=== PATIENT | male | born 1935 | race Caucasian/White ===

== ENCOUNTER 2017-12-13 09:12 | Outpatient (CLI) | payer MEDICARE, BC ==
--- NOTE | 2017-12-13 11:29 | RAD ---
PA AND LATERAL VIEWS OF CHEST: Date: 12/13/17 HISTORY: Dyspnea. FINDINGS/IMPRESSION: Comparison made with exam of 12/26/16. There is continued elevation of the right hemidiaphragm. Left-sided AICD remains in place. The heart size is prominent, but stable. Chronic changes in the lung parenchyma are again noted. There is mild increased density in the right lower lung which may either be due to worsening of the chronic changes or acute process. Evidence of old granulomatous disease again seen. POS: [facility]
== END 2017-12-13 09:13 | disposition home or self-care (01) ==
LOC: RAD 09:12
PROVIDERS: ATTEND Internal Medicine Critical Care Medicine
DX: R06.00 Dyspnea, unspecified (principal); R91.8 Other nonspecific abnormal finding of lung field; J98.6 Disorders of diaphragm; Z95.810 Presence of automatic (implantable) cardiac defibrillator
CPT/HCPCS: 71046

== ENCOUNTER 2018-06-25 09:53 | Outpatient (CLI) | payer MEDICARE ==
--- NOTE | 2018-06-25 11:41 | RAD ---
TWO VIEW CHEST: History: Dyspnea. Comparison: 12-13-17 FINDINGS: There are some chronic appearing parenchymal changes which appear stable including stranding in the r ight midlung and bilateral apical pleural thickening. There is no evidence of acute infiltrate or vas cular congestion. Heart size is upper normal and stable. AICD leads are unchanged. There is a calcifi ed nodule in the left apical region which is unchanged in appearance. There is mild wedging of the T1 2 vertebra which is stable. IMPRESSION: Stable chest findings with no acute process apparent. POS: [facility]
== END 2018-06-25 09:54 | disposition home or self-care (01) ==
LOC: RAD 09:53
PROVIDERS: ATTEND Internal Medicine Critical Care Medicine
DX: R06.00 Dyspnea, unspecified (principal)
CPT/HCPCS: 71046

== ENCOUNTER 2018-08-12 16:02 | Inpatient (IN) | payer MEDICARE ==
[2018-08-12 16:40] LABS: #Basophils 0.2 thou/uL (0.0-0.2); #Eosinphils 0.6 thou/uL (0.0-0.7); #Monocytes 1.3 thou/uL (0.11-0.59); #Neutrophils 6.4 thou/uL (1.40-6.50); %Basophils 1.5 % (0.0-1.0); %Eosinophils 5.4 % (0.0-10.0); %Lymphocytes 19.1 % (21.0-51.0); %Monocytes 12.5 % (0.0-10.0); %Neutrophils 61.5 % (42.0-75.0); Hemoglobin 10.8 g/dL (14.0-18.0); Mean Corpuscular HGB CONC 32.3 g/dL (32.0-36.0); Mean Corpuscular Hemoglobin 28.9 pg (27.0-31.0); Mean Corpuscular Volume 89.3 fL (78.0-98.0); Mean Platelet Volume 10.9 fL (7.4-10.4); Platelet Count 179 thou/uL (130-400); RBC Distribution Width 13.9 % (11.5-14.5); Red Blood Cell (RBC) Count 3.73 mill/uL (4.70-6.10); White Blood Cell (WBC) Count 10.3 thou/uL (4.8-10.8)
[2018-08-12 16:54] LABS: ALT (SGPT) 22 U/L (8-55); AST (SGOT) 24 U/L (5-34); Albumin 3.6 g/dL (3.4-4.8); Alkaline Phosphatase 83 U/L (40-150); Anion Gap 13 mmol/L (10-20); BUN (Urea Nitrogen) 28 mg/dL (8.4-25.7); Bilirubin, Total 0.7 mg/dL (0.2-1.2); Calc. Creatinine Clearance 0 mL/min (70-130); Calcium 10.2 mg/dL (7.8-10.44); Carbon Dioxide 34 mmol/L (23-31); Chloride 100 mmol/L (98-107); Estimated GFR-MDRD 48; Globulin 3.2 g/dL (2.4-3.5); Glucose 95 mg/dL (83-110); Potassium 3.7 mmol/L (3.5-5.1); Protein, Total 6.8 g/dL (5.8-8.1); Sodium 143 mmol/L (136-145)
[2018-08-12] MEDS ORDERED: Clindamycin/D5W 600 mg/50 ml Premix Bag ONE (17:52)
[2018-08-12] MEDS ORDERED: Piperacillin/Tazobactam 3.375 GM VIAL ONE (17:52)
--- NOTE | 2018-08-12 17:55 | RAD ---
LATERAL IMAGING RIGHT TIBIA AND FIBULA 08/12/18 COMPARISON: None. HISTORY: Injury, trauma, pain. FINDINGS: There is a right knee arthroplasty. There is no displaced fracture or evidence of dislocation seen. T here is soft tissue swelling in the region of the knee medially and laterally. There is vascular calc ification posterior to the distal right femur. IMPRESSION: No displaced fracture noted. POS: [facility]
--- NOTE | 2018-08-12 19:44 | ULT ---
RIGHT LOWER EXTREMITY VENOUS DOPPLER ULTRASOUND: 08/12/2018 HISTORY: Pain, swelling, and redness. Fall. COMPARISON: None. TECHNIQUE: Multiplanar sharma-scale sonographic imaging of the venous structures of the right lower extremity were obtained with color-flow and spectral analysis. FINDINGS: Just below the level of the knee, in the anterior soft tissues, there is an anterolateral complex flu id collection, deep to the subcutaneous fat, measuring at least 15.5 cm in craniocaudal dimension. T his suggests a large soft tissue anterior hematoma. Follow-up imaging to document resolution advised as clinically warranted. The right common femoral vein, greater saphenous vein, profunda femoral ve in, femoral vein, popliteal vein, and posterior tibial vein are patent. There is normal blood flow, augmentation, and compression within the deep venous system on the right, with no evidence for DVT. IMPRESSION: 1. No evidence for deep venous thrombosis. 2. Complex anterior soft tissue fluid collection inferior to the right knee, which suggests a large hematoma, given history of fall, trauma, and pain. Abscess cannot be excluded. Follow-up imaging ad vised as clinically warranted. POS: [facility]
[2018-08-12 22:01] VITALS: BMI 27.3
[2018-08-12] MEDS ORDERED: HYDROcodone/Acetaminophen 5/325 mg Tablet PO PRN ×2 (22:54)
[2018-08-13] MEDS ORDERED: VANCOMYCIN IVPB PRN (02:27)
[2018-08-13] MEDS: Piperacillin/Tazobactam 3.375 GM in Sodium Chloride 0.9% 100 ML IVPB SCH ×4 (02:47→20:38)
[2018-08-13] MEDS ORDERED: Mometasone/Formoterol 120 PUFF INHALER INH SCH (06:30)
[2018-08-13] MEDS ORDERED: Budesonide 0.5 MG/2 ML NEB NEB SCH (07:00)
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
[2018-08-13] MEDS: Vancomycin HCl 1.5 GM in Sodium Chloride 0.9% 250 ML 300 ML IVPB SCH (10:10)
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
[2018-08-13] MEDS ORDERED: Montelukast Sodium 10 mg Tablet PO SCH (12:00)
[2018-08-13] MEDS ORDERED: Furosemide 40 MG TAB PO SCH (12:00)
[2018-08-13] MEDS ORDERED: Prenatal Vitamin 1 TAB PO SCH (12:00)
[2018-08-13] MEDS ORDERED: Spironolactone 25 MG TAB PO SCH (12:00)
[2018-08-13] MEDS ORDERED: Potassium Chloride 10 MEQ TAB PO SCH (12:00)
[2018-08-13] MEDS ORDERED: Atorvastatin Calcium 40 MG TAB PO SCH (12:00)
[2018-08-13] MEDS: Mometasone/Formoterol 120 PUFF INHALER INH SCH (18:20)
[2018-08-13] MEDS: Montelukast Sodium 10 mg Tablet PO SCH (20:34)
[2018-08-14] MEDS: Piperacillin/Tazobactam 3.375 GM in Sodium Chloride 0.9% 100 ML IVPB SCH ×4 (02:07→20:38)
[2018-08-14] MEDS: Mometasone/Formoterol 120 PUFF INHALER INH SCH ×2 (06:57→19:29)
[2018-08-14] MEDS: Budesonide 0.5 MG/2 ML NEB NEB SCH (06:58)
[2018-08-14] MEDS ORDERED: Lidocaine 1% (PF) 30 ML VIAL ONE (07:54)
[2018-08-14] MEDS ORDERED: Lidocaine 1% (PF) 30 ML VIAL SC SCH (08:00)
[2018-08-14] MEDS ORDERED: Lidocaine 1% w/Epinephrine 1:100K 20 ML VIAL ONE (08:06)
[2018-08-14] MEDS: Atorvastatin Calcium 40 MG TAB PO SCH (09:10)
[2018-08-14] MEDS: Furosemide 40 MG TAB PO SCH (09:11)
[2018-08-14] MEDS: Spironolactone 25 MG TAB PO SCH (09:11)
[2018-08-14] MEDS: Potassium Chloride 10 MEQ TAB PO SCH (09:11)
[2018-08-14] MEDS: Prenatal Vitamin 1 TAB PO SCH (09:12)
[2018-08-14] MEDS: Vancomycin HCl 1.5 GM in Sodium Chloride 0.9% 250 ML 300 ML IVPB SCH (09:13)
--- NOTE | 2018-08-14 12:02 | PRG ---
DATE OF SERVICE: 08/14/2018 SUBJECTIVE: Jewels is an 83-year-old white male, who is admitted 2 days ago by the medicine service for evaluation of swelling on the right leg. Apparently, he had a fall, but there is some concern of cellulitis and significant redness. He was seen by Dr. Leon in the clinic. Couple of days ago sent to the emergency room and ultimately admitted by the medicine team. Today, he is feeling a little better. He has been on vancomycin 1.5 every 12 hours as well as Zosyn. We have been asked to aspirate the hematoma for evaluation of possible infectious nature. PHYSICAL EXAMINATION: VITAL SIGNS: Temperature is 98, pulse 70, respiratory rate is 20, O2 saturation is 90% on 4 L nasal cannula, blood pressure is 109/68. GENERAL: He is alert and oriented to person, place, time, and situation, grossly nonfocal. He appears to be in no distress currently. Active and appropriate with the examiner. EXTREMITIES: Visual inspection of the right lower extremity demonstrates that he indeed have significant swelling on the anterior compartment just lateral to the tibial spine extending over to the fibular head and down approximately two handbreadths and this lump appears to be about 6 to 7 cm wide in width and two handbreadths in its longitudinal axis. It feels fluctuant with pressing. He has nice skin folds distal to this, but he does have some erythema on the distal aspect, which has been circumscribed and this actually appears to be receding based on last examination. Erythema is nontender, it blanches with pressure, tends to encompass about two thirds of the mid and proximal leg anteriorly and a little bit on the medial aspect of the tibial spine, but does not wrap around to the posterior aspect of the leg. He has good dorsiflexion with 5/5 strength in the extensor hallucis longus. Also good plantar flexion is noted. There is no crepitus at the ankle or the knee, neither joint appears not to be involved. This appears to be an isolated mid paredes hematoma extending from fibular head down to about mid leg and compressible. There are no breaks in the skin. There does not appear to be eruption or dehiscence pending. IMPRESSION: Right knee tibial mid paredes fluctuant hematoma. PLAN: 1. I think a formal needle aspiration and decompression is possible at the bedside and we will go ahead and proceed with that today and see what the gross specimen looks like and/or try to completely drain or decompress and take some tension off this hematoma. 2. Please see procedure note for needle decompression. Job ID: [id number]
--- NOTE | 2018-08-14 13:12 | PDOC.PN ---
- Subjective Encounter Start Date: 08/14/18 Encounter Start Time: 10:15 follow up for RLE hematoma, pain, recent fall. Seen by Iero earlier, thinks its all hematoma. PA to aspirate today, dark blood obtained, no evidence of infection. No F/C, no N/V/D/C, no cP or SOB. All systems reviewed and neg x as above - Objective MAR Reviewed: Yes Vital Signs & Weight: Vital Signs (12 hours) Temp Pulse Resp BP BP Pulse Ox 08/14/18 11:37 98.0 F 87 18 93/59 L 92 L 08/14/18 10:37 81 14 08/14/18 08:15 92 L 08/14/18 08:00 97.5 F L 84 20 106/65 92 L 08/14/18 06:59 80 14 08/14/18 04:00 98.0 F 70 20 109/68 90 L Weight Weight 218 lb 8 oz I&O: 08/13/18 08/14/18 08/15/18 06:59 06:59 06:59 Intake Total 480 Balance 480 Result Diagrams: 08/12/18 16:27 08/12/18 16:27 Phys Exam - Physical Examination Constitutional: NAD HEENT: PERRLA, moist MMs, sclera anicteric, oral pharynx no lesions Neck: no nodes, no JVD, supple, full ROM Respiratory: no wheezing, no rales, no rhonchi, clear to auscultation bilateral Cardiovascular: RRR, no significant murmur, no rub Gastrointestinal: soft, non-tender, no distention, positive bowel sounds Musculoskeletal: edema present Neurological: non-focal, normal sensation, moves all 4 limbs Lymphatic: no nodes Psychiatric: normal affect, A&O x 3 Skin: no rash, normal turgor, cap refill <2 seconds Dx/Plan (1) Fall on same level Code(s): W18.30XA - FALL ON SAME LEVEL, UNSPECIFIED, INITIAL ENCOUNTER Status : Acute Qualifiers: Encounter type: subsequent encounter Qualified Code(s): W18.30XD - Fall on same level, unspecified, subsequent encounter (2) CAD (coronary artery disease) Code(s): I25.10 - ATHSCL HEART DISEASE OF [place] CORONARY ARTERY W/O ANG PCTRS Status: Acute Qualifiers: Coronary Disease-Associated Artery/Lesion type: [place] artery [place] vs. transplanted heart: [place] heart Associated angina: without angina Qualified Code(s): I25.10 - Atherosclerotic heart disease of [place] coronary artery without angina pectoris (3) COPD (chronic obstructive pulmonary disease) Status: Chronic Qualifiers: COPD type: unspecified COPD Qualified Code(s): J44.9 - Chronic obstructive pulmonary disease, unspecified (4) Hematoma of right lower extremity Code(s): S80.11XA - CONTUSION OF RIGHT LOWER LEG, INITIAL ENCOUNTER Status: Acute Qualifiers: Encounter type: subsequent encounter Qualified Code(s): S80.11XD - Contusion of right lower leg, subsequent encounter (5) HTN (hypertension) Code(s): I10 - ESSENTIAL (PRIMARY) HYPERTENSION Status: Chronic Qualifiers: Hypertension type: essential hypertension Qualified Code(s): I10 - Essential (primary) hypertension (6) HLD (hyperlipidemia) Code(s): E78.5 - HYPERLIPIDEMIA, UNSPECIFIED Status: Chronic Qualifiers: Hyperlipidemia type: unspecified Qualified Code(s): E78.5 - Hyperlipidemia , unspecified (7) Chronic systolic (congestive) heart failure Code(s): I50.22 - CHRONIC SYSTOLIC (CONGESTIVE) HEART FAILURE Status: Chronic (8) Gout Code(s): M10.9 - GOUT, UNSPECIFIED Status: Chronic Qualifiers: Gout site: unspecified site Gout etiology: unspecified cause Chronicity: chronic - Plan cont current plan of care, plan discussed w/ family, PT/OT, out of bed/ambulate * .
[2018-08-14] MEDS: Montelukast Sodium 10 mg Tablet PO SCH (20:38)
[2018-08-15] MEDS: Piperacillin/Tazobactam 3.375 GM in Sodium Chloride 0.9% 100 ML IVPB SCH ×2 (02:39→09:20)
[2018-08-15] MEDS: Budesonide 0.5 MG/2 ML NEB NEB SCH (07:36)
[2018-08-15] MEDS: Mometasone/Formoterol 120 PUFF INHALER INH SCH (07:37)
[2018-08-15 09:00] LABS: Vancomycin, Trough 19.2 ug/mL
--- NOTE | 2018-08-15 09:05 | OP ---
DATE OF PROCEDURE: 08/14/2018 ANESTHESIA: 1% Xylocaine. EQUIPMENT UTILIZED: 18-gauge needle with 20 and 60 mL of syringes. FINDINGS: Organized hematoma. No evidence of infection or purulence. PROCEDURE IN DETAIL: After informed consent was obtained at the bedside, the patient was positioned appropriately. The right leg and site were identified, and a brief time-out was held identified and confirmed. Surgical site was preoperatively marked and identified by the nursing staff. Once this was complete, the right lower extremity was then prepped and draped in sterile fashion around the hematoma site. It was cleared off with sterile towels. 1% Xylocaine anesthesia was administered at the apex and inferior side of the hematoma, which appeared not to have any cellulitic change around it. Once this was complete, 18-gauge needle was then introduced to the same side down into the cavity of the hematoma. Evacuation was attempted with multiple syringes for pressure differentials and amplification. I was able to gather a small amount of consolidated dark currant jelly colored and consistency hematoma through the needle. After making multiple attempts and multiple approaches through the same hole, I was not able to express or move any of the organized subcutaneous liquified blood. Therefore, the needle was withdrawn, little bit of bleeding occurred at the site, again which was dark currant jelly. There was no bright red blood. Sterile pressure dressing was applied over the needle site. It was wrapped with Kerlix and an CHRISTOPHER bandage. Procedure was terminated without any complications. The patient tolerated it well. Overall impression: No evidence of purulence, no evidence of infection and this appears to be an organized, stable, and improving right leg hematoma. We will continue to follow the patient clinically. No formal plans for incision or washout are made at this time. We will continue to observe the patient clinically and conservatively. Job ID: [id number]
[2018-08-15] MEDS: Furosemide 40 MG TAB PO SCH (09:22)
[2018-08-15] MEDS: Potassium Chloride 10 MEQ TAB PO SCH (09:22)
[2018-08-15] MEDS: Spironolactone 25 MG TAB PO SCH (09:22)
[2018-08-15] MEDS: Atorvastatin Calcium 40 MG TAB PO SCH (09:22)
--- NOTE | 2018-08-15 10:28 | DIS ---
DATE OF ADMISSION: 08/12/2018 DATE OF DISCHARGE: 08/15/2018 PRIMARY CARE PHYSICIAN: None. DISCHARGE DIAGNOSES: 1. Fall from same level. 2. Traumatic hematoma of the right lower extremity. 3. Lower extremity pain. 4. Chronic lower extremity edema. 5. Infection ruled out. CONSULTATION: Orthopedics, Dr. Salas. PROCEDURES: None. HISTORY AND PHYSICAL: Mr. Donis is an 83-year-old gentleman with a fall 10 days prior to admission with increasing pain and swelling to his right lower extremity. He was sent by Dr. Leon to the Emergency Department with possible cellulitis. We were called for admit. HOSPITAL COURSE: The patient was seen and examined by me on admission. He placed in an inpatient status, started on antibiotics. Workup of the leg, it looked to be more hematoma. Orthopedics was consulted. On 08/14/2018, the hematoma was aspirated showing old blood, no evidence of infection. He was watched overnight and was stable for discharge with outpatient followup. DISCHARGE PHYSICAL EXAMINATION: The patient was seen and examined on the day of discharge. Discharge plan and disposition were discussed with the patient face to face at the bedside. DISCHARGE MEDICATIONS: Resume home medications. Please see the medicine discharge reconciliation sheet. DISCHARGE ACTIVITY: As tolerated. Keep the leg elevated and compression wrap on when non-mobile. DISCHARGE CONDITION: Stable. DISPOSITION: He will be discharged to home via private vehicle. DISCHARGE DIET: Heart healthy recommended. DISCHARGE FOLLOWUP APPOINTMENTS: 1. Primary care physician within a week. 2. Dr. Salas in 2 to 3 weeks. Job ID: [id number]
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
[2018-08-15] MEDS: Vancomycin HCl 1.5 GM in Sodium Chloride 0.9% 250 ML 300 ML IVPB SCH (10:44)
[2018-08-15] MEDS: Prenatal Vitamin 1 TAB PO SCH (10:44)
[2018-08-15 13:26] VITALS: BP 100/60; TEMP 97.8
== END 2018-08-15 14:40 | disposition home or self-care (01) | DRG 605 ==
LOC: SCSER 16:02 → ERHOLD 19:22 → T4-A 21:33
PROVIDERS: ADMIT Hospitalist; ATTEND Hospitalist
PROC: 0JCN3ZZ Extirpation of Matter from Right Lower Leg Subcutaneous Tissue and Fascia, Percutaneous Approach (ICD-10-PCS; principal; 2018-08-14)
DX: S80.11XA Contusion of right lower leg, initial encounter (principal); I50.22 Chronic systolic (congestive) heart failure; I25.10 Atherosclerotic heart disease of native coronary artery without angina pectoris; J44.9 Chronic obstructive pulmonary disease, unspecified; E78.5 Hyperlipidemia, unspecified; I11.0 Hypertensive heart disease with heart failure; G62.9 Polyneuropathy, unspecified; Z95.5 Presence of coronary angioplasty implant and graft; Z96.653 Presence of artificial knee joint, bilateral; Z79.899 Other long term (current) drug therapy; Z79.82 Long term (current) use of aspirin; Z79.02 Long term (current) use of antithrombotics/antiplatelets; W18.30XA Fall on same level, unspecified, initial encounter; Z99.81 Dependence on supplemental oxygen; Z90.81 Acquired absence of spleen; Z95.810 Presence of automatic (implantable) cardiac defibrillator; Z87.891 Personal history of nicotine dependence; M1A.9XX0 Chronic gout, unspecified, without tophus (tophi)
CPT/HCPCS: 36415; 80053; 80202; 83605; 85025; 87040; 94640; 96365; 96367; 96375; J2001; J2543; J3370; J3490; J7050; J7620; J7626

== ENCOUNTER 2020-07-08 10:22 | Outpatient (CLI) | payer MEDICARE ==
--- NOTE | 2020-07-08 12:03 | RAD ---
EXAM: Chest 2 views: HISTORY: Dyspnea COMPARISON: 06/25/2018 FINDINGS: There is a normal-sized cardiomediastinal silhouette. The pacemaker is unchanged in position. Diffus e increased interstitial markings are stable. Biapical pleural thickening is seen. Atherosclerotic calcifications are seen in the aorta. There may be a small left pleural effusion. No acute osseous abnormality. IMPRESSION: Chronic interstitial lung disease with possible small left pleural effusion
== END 2020-07-08 10:23 | disposition home or self-care (01) ==
LOC: BICRAD 10:22
PROVIDERS: ATTEND Internal Medicine Critical Care Medicine
DX: R06.00 Dyspnea, unspecified (principal); J84.9 Interstitial pulmonary disease, unspecified
CPT/HCPCS: 71046

== ENCOUNTER 2021-02-07 12:15 | Outpatient (CLI) | payer MEDICARE | END 2021-02-07 12:16 | disposition home or self-care (01) | LOC: BICRAD 12:15 | PROVIDERS: ATTEND Internal Medicine Critical Care Medicine | DX: R06.00 Dyspnea, unspecified (principal); R91.8 Other nonspecific abnormal finding of lung field | CPT/HCPCS: 71046 ==

== ENCOUNTER 2021-09-01 11:02 | Outpatient (CLI) | payer MEDICARE | END 2021-09-01 11:03 | disposition home or self-care (01) | LOC: RAD 11:02 | PROVIDERS: ATTEND Internal Medicine Critical Care Medicine | DX: R06.00 Dyspnea, unspecified (principal) | CPT/HCPCS: 71046 ==

== ENCOUNTER 2021-09-13 19:05 | Inpatient (IN) | payer MEDICARE ==
[2021-09-13 20:47] LABS: #Lymphocytes 1.4 thou/uL (1.20-3.40); #Monocytes 1.3 thou/uL (0.11-0.59); #Neutrophils 11.1 thou/uL (1.40-6.50); %Basophils 0.3 % (0.0-1.0); %Eosinophils 0.1 % (0.0-10.0); %Lymphocytes 10.3 % (21.0-51.0); %Monocytes 9.1 % (0.0-10.0); %Neutrophils 80.2 % (42.0-75.0); Mean Corpuscular HGB CONC 32.6 g/dL (32.0-36.0); Mean Corpuscular Hemoglobin 30.5 pg (27.0-31.0); Mean Corpuscular Volume 93.5 fL (78.0-98.0); Mean Platelet Volume 10.6 fL (7.4-10.4); Platelet Count 143 thou/uL (130-400); RBC Distribution Width 14.6 % (11.5-14.5); Red Blood Cell (RBC) Count 3.27 mill/uL (4.70-6.10); White Blood Cell (WBC) Count 13.8 thou/uL (4.8-10.8)
[2021-09-13 21:14] LABS: ALT (SGPT) 22 U/L (8-55); AST (SGOT) 37 U/L (5-34); Albumin 3.1 g/dL (3.4-4.8); Alkaline Phosphatase 79 U/L (40-110); Anion Gap 14 mmol/L (10-20); BUN (Urea Nitrogen) 69 mg/dL (8.4-25.7); Bilirubin, Total 0.4 mg/dL (0.2-1.2); Calc. Creatinine Clearance 0 mL/min (70-130); Calcium 9.7 mg/dL (7.8-10.44); Carbon Dioxide 28 mmol/L (23-31); Chloride 96 mmol/L (98-107); Globulin 3.1 g/dL (2.4-3.5); Glucose 112 mg/dL (83-110); Potassium 4.6 mmol/L (3.5-5.1); Protein, Total 6.2 g/dL (5.8-8.1); Sodium 133 mmol/L (136-145)
[2021-09-13] MEDS ORDERED: Azithromycin 500 MG VIAL ONE (22:18)
[2021-09-13] MEDS ORDERED: cefTRIAXone\\ROCEPHIN 2 GM VIAL ONE (22:18)
[2021-09-13 23:15] LABS: Bacteria/HPF None Seen HPF (None Seen); Bilirubin Negative (Negative); Blood, Urine Trace (Negative); Clarity Clear (Clear); Glucose, Urine (Dipstick) Normal (Negative); Ketone, Urine Negative (Negative); Leukocyte Negative Leu/uL (Negative); Mucous/LPF Rare LPF (<2+); Nitrite Negative (Negative); Protein, Urine (Dipstick) 30 mg/dL (Neg-Trace); RBC/HPF None Seen HPF (0-3); Specific Gravity, Urine 1.012 (1.002-1.036); Squamous Epithelial None Seen HPF (0-3); Urobilinogen Normal mg/dL (Less than 2); WBC/HPF None Seen HPF (0-3)
[2021-09-13] MEDS ORDERED: hydrALAZINE 20 MG/ML VIAL SLOW IVP PRN (23:27)
[2021-09-13] MEDS ORDERED: GUAIFENESIN SF SOLN 200 MG/10 ML UDCUP PO PRN (23:27)
[2021-09-13] MEDS ORDERED: Morphine 4 MG/ML VIAL SLOW IVP PRN (23:35)
[2021-09-14 00:21] LABS: SARS-CoV-2 NAA Rapid Test DETECTED (NotDetected)
[2021-09-14 04:23] LABS: Band 2 % (5-11); Hemoglobin 10.2 g/dL (14.0-18.0); Lymphocytes 8 % (21-51); MDiff Complete? YES; Mean Corpuscular HGB CONC 32.1 g/dL (32.0-36.0); Mean Corpuscular Hemoglobin 30.4 pg (27.0-31.0); Mean Corpuscular Volume 94.9 fL (78.0-98.0); Mean Platelet Volume 10.5 fL (7.4-10.4); Monocytes 5 % (0-10); Neutrophil 84 % (42-75); Platelet Count 146 thou/uL (130-400); Platelet Morphology Comment Appears Adequate; RBC Distribution Width 14.5 % (11.5-14.5); RBC Morphology Normal; Red Blood Cell (RBC) Count 3.37 mill/uL (4.70-6.10); White Blood Cell (WBC) Count 12.3 thou/uL (4.8-10.8)
[2021-09-14 04:42] LABS: ALT (SGPT) 22 U/L (8-55); AST (SGOT) 40 U/L (5-34); Albumin 2.9 g/dL (3.4-4.8); Alkaline Phosphatase 75 U/L (40-110); Anion Gap 12 mmol/L (10-20); BUN (Urea Nitrogen) 61 mg/dL (8.4-25.7); Bilirubin, Total 0.2 mg/dL (0.2-1.2); Calc. Creatinine Clearance 37 mL/min (70-130); Calcium 9.3 mg/dL (7.8-10.44); Carbon Dioxide 28 mmol/L (23-31); Chloride 101 mmol/L (98-107); Globulin 2.9 g/dL (2.4-3.5); Glucose 103 mg/dL (83-110); Potassium 4.3 mmol/L (3.5-5.1); Protein, Total 5.8 g/dL (5.8-8.1); Sodium 137 mmol/L (136-145)
[2021-09-14] MEDS: Dexamethasone 1 MG TAB PO SCH ×2 (08:14→17:04)
[2021-09-14] MEDS: Aspirin 325 mg Enteric Coated Tablet PO SCH (08:15)
[2021-09-14] MEDS: Cyanocobalamin (Vitamin B-12) 1,000 MCG TAB PO SCH (08:15)
[2021-09-14] MEDS: Enoxaparin Sodium 30 MG/0.3 ML SYRINGE SC SCH (08:16)
[2021-09-14] MEDS: Zinc Sulfate 220 MG CAP PO SCH (08:16)
[2021-09-14] MEDS ORDERED: Cefepime 1 GM in Sodium Chloride 0.9% 100 ML IVPB SCH (09:00)
[2021-09-14] MEDS: Albuterol 200 PUFF (6.7GM INHALER) INH SCH ×4 (11:22→21:40)
[2021-09-14] MEDS ORDERED: Lactated Ringer's 500 ML IV SCH (18:15)
[2021-09-14] MEDS: Cefepime 1 GM in Sodium Chloride 0.9% 100 ML IVPB SCH (20:29)
[2021-09-14] MEDS: Azithromycin 500 MG in Sodium Chloride 0.9% 250 ML 250 ML IVPB SCH (21:39)
[2021-09-15] MEDS: Albuterol 200 PUFF (6.7GM INHALER) INH SCH ×6 (03:33→21:28)
[2021-09-15 08:38] LABS: Hemoglobin 10.5 g/dL (14.0-18.0); Mean Corpuscular HGB CONC 31.6 g/dL (32.0-36.0); Mean Corpuscular Hemoglobin 30.8 pg (27.0-31.0); Mean Corpuscular Volume 97.2 fL (78.0-98.0); Mean Platelet Volume 10.3 fL (7.4-10.4); Platelet Count 141 thou/uL (130-400); RBC Distribution Width 14.9 % (11.5-14.5); Red Blood Cell (RBC) Count 3.42 mill/uL (4.70-6.10)
[2021-09-15 08:57] LABS: Albumin 2.9 g/dL (3.4-4.8); Anion Gap 10 mmol/L (10-20); BUN (Urea Nitrogen) 42 mg/dL (8.4-25.7); Calc. Creatinine Clearance 45 mL/min (70-130); Calcium 9.6 mg/dL (7.8-10.44); Carbon Dioxide 30 mmol/L (23-31); Chloride 101 mmol/L (98-107); Glucose 93 mg/dL (83-110); Potassium 4.9 mmol/L (3.5-5.1); Sodium 136 mmol/L (136-145)
[2021-09-15] MEDS: Enoxaparin Sodium 30 MG/0.3 ML SYRINGE SC SCH (09:43)
[2021-09-15] MEDS: Aspirin 325 mg Enteric Coated Tablet PO SCH (09:43)
[2021-09-15] MEDS: Zinc Sulfate 220 MG CAP PO SCH (09:43)
[2021-09-15] MEDS: Cyanocobalamin (Vitamin B-12) 1,000 MCG TAB PO SCH (09:44)
[2021-09-15] MEDS: Dexamethasone 1 MG TAB PO SCH ×2 (09:44→18:28)
[2021-09-15] MEDS: Cefepime 1 GM in Sodium Chloride 0.9% 100 ML IVPB SCH ×2 (09:45→20:47)
[2021-09-15] MEDS: Metoprolol Tartrate 25 MG TAB PO SCH (20:48)
[2021-09-15] MEDS: Azithromycin 500 MG in Sodium Chloride 0.9% 250 ML 250 ML IVPB SCH (21:28)
[2021-09-16] MEDS: Albuterol 200 PUFF (6.7GM INHALER) INH SCH ×6 (04:33→21:31)
[2021-09-16 07:16] LABS: Albumin 2.7 g/dL (3.4-4.8); BUN (Urea Nitrogen) 47 mg/dL (8.4-25.7); BUN/Creatinine Ratio 34.06; Calc. Creatinine Clearance 41 mL/min (70-130); Calcium 9.2 mg/dL (7.8-10.44); Carbon Dioxide 28 mmol/L (23-31); Chloride 99 mmol/L (98-107); Glucose 117 mg/dL (83-110); Phosphorus 3.1 mg/dL (2.3-4.7); Sodium 134 mmol/L (136-145)
[2021-09-16 07:30] LABS: Anion Gap 12 mmol/L (10-20)
[2021-09-16] MEDS: Aspirin 325 mg Enteric Coated Tablet PO SCH (08:56)
[2021-09-16] MEDS: Zinc Sulfate 220 MG CAP PO SCH (08:56)
[2021-09-16] MEDS: Cefepime 1 GM in Sodium Chloride 0.9% 100 ML IVPB SCH ×2 (08:57→20:37)
[2021-09-16] MEDS: Dexamethasone 1 MG TAB PO SCH ×2 (08:57→18:27)
[2021-09-16] MEDS: Clopidogrel Bisulfate 75 MG TAB PO SCH (08:57)
[2021-09-16] MEDS: Allopurinol 300 MG TAB PO SCH (08:57)
[2021-09-16] MEDS: Atorvastatin Calcium 40 MG TAB PO SCH (08:57)
[2021-09-16] MEDS: Metoprolol Tartrate 25 MG TAB PO SCH ×2 (08:58→20:38)
[2021-09-16] MEDS: Enoxaparin Sodium 30 MG/0.3 ML SYRINGE SC SCH (08:58)
[2021-09-16] MEDS: Cyanocobalamin (Vitamin B-12) 1,000 MCG TAB PO SCH (08:59)
[2021-09-16] MEDS ORDERED: Spironolactone 25 MG TAB PO SCH (09:00)
[2021-09-16] MEDS: Mometasone 200 MCG/Formoterol 5 MCG 120 PUFF INHALER INH SCH (18:28)
[2021-09-16] MEDS: Furosemide 20 MG TAB PO SCH (20:38)
[2021-09-16] MEDS: Azithromycin 500 MG in Sodium Chloride 0.9% 250 ML 250 ML IVPB SCH (21:30)
[2021-09-17] MEDS: Albuterol 200 PUFF (6.7GM INHALER) INH SCH ×6 (02:53→22:08)
[2021-09-17] MEDS: Mometasone 200 MCG/Formoterol 5 MCG 120 PUFF INHALER INH SCH ×2 (06:12→18:01)
[2021-09-17] MEDS: Dexamethasone 1 MG TAB PO SCH (09:23)
[2021-09-17] MEDS: Aspirin 325 mg Enteric Coated Tablet PO SCH (09:24)
[2021-09-17] MEDS: Allopurinol 300 MG TAB PO SCH (09:24)
[2021-09-17] MEDS: Cefepime 1 GM in Sodium Chloride 0.9% 100 ML IVPB SCH ×2 (09:25→20:34)
[2021-09-17] MEDS: Atorvastatin Calcium 40 MG TAB PO SCH (09:25)
[2021-09-17] MEDS: Clopidogrel Bisulfate 75 MG TAB PO SCH (09:27)
[2021-09-17] MEDS: Cyanocobalamin (Vitamin B-12) 1,000 MCG TAB PO SCH (09:27)
[2021-09-17] MEDS: Furosemide 20 MG TAB PO SCH ×2 (09:29→20:35)
[2021-09-17] MEDS: Enoxaparin Sodium 30 MG/0.3 ML SYRINGE SC SCH (09:29)
[2021-09-17] MEDS: Metoprolol Tartrate 25 MG TAB PO SCH ×2 (09:30→20:35)
[2021-09-17] MEDS: Montelukast Sodium 10 mg Tablet PO SCH (09:30)
[2021-09-17] MEDS: Zinc Sulfate 220 MG CAP PO SCH (09:31)
[2021-09-17 12:38] LABS: Anion Gap 9 mmol/L (10-20); BUN (Urea Nitrogen) 54 mg/dL (8.4-25.7); CRP (Inflammatory) 5.02 mg/dL (= or < 0.5); Calc. Creatinine Clearance 45 mL/min (70-130); Calcium 9.4 mg/dL (7.8-10.44); Carbon Dioxide 31 mmol/L (23-31); Chloride 100 mmol/L (98-107); Glucose 122 mg/dL (83-110); Potassium 4.7 mmol/L (3.5-5.1); Sodium 135 mmol/L (136-145)
[2021-09-17] MEDS: Azithromycin 500 MG in Sodium Chloride 0.9% 250 ML 250 ML IVPB SCH (22:08)
[2021-09-18] MEDS: Albuterol 200 PUFF (6.7GM INHALER) INH SCH ×6 (02:26→22:45)
[2021-09-18] MEDS: Mometasone 200 MCG/Formoterol 5 MCG 120 PUFF INHALER INH SCH ×2 (06:10→17:50)
[2021-09-18] MEDS: Enoxaparin Sodium 30 MG/0.3 ML SYRINGE SC SCH (08:53)
[2021-09-18] MEDS: Cyanocobalamin (Vitamin B-12) 1,000 MCG TAB PO SCH (08:54)
[2021-09-18] MEDS: Atorvastatin Calcium 40 MG TAB PO SCH (08:55)
[2021-09-18] MEDS: Aspirin 325 mg Enteric Coated Tablet PO SCH (08:55)
[2021-09-18] MEDS: Montelukast Sodium 10 mg Tablet PO SCH (08:56)
[2021-09-18] MEDS: Metoprolol Tartrate 25 MG TAB PO SCH ×2 (08:56→22:03)
[2021-09-18] MEDS: Clopidogrel Bisulfate 75 MG TAB PO SCH (08:56)
[2021-09-18] MEDS: Zinc Sulfate 220 MG CAP PO SCH (08:56)
[2021-09-18] MEDS: Allopurinol 300 MG TAB PO SCH (08:56)
[2021-09-18] MEDS: predniSONE 20 MG TAB PO SCH (08:56)
[2021-09-18] MEDS: Furosemide 20 MG TAB PO SCH ×2 (08:56→22:02)
[2021-09-18] MEDS: Cefepime 1 GM in Sodium Chloride 0.9% 100 ML IVPB SCH ×2 (08:57→22:02)
[2021-09-18] MEDS: Azithromycin 500 MG in Sodium Chloride 0.9% 250 ML 250 ML IVPB SCH (22:45)
[2021-09-19] MEDS: Albuterol 200 PUFF (6.7GM INHALER) INH SCH ×6 (02:50→21:40)
[2021-09-19 06:06] LABS: #Lymphocytes 1.5 thou/uL (1.20-3.40); #Monocytes 1.4 thou/uL (0.11-0.59); #Neutrophils 7.1 thou/uL (1.40-6.50); %Basophils 0.1 % (0.0-1.0); %Eosinophils 0.5 % (0.0-10.0); %Lymphocytes 14.6 % (21.0-51.0); %Monocytes 13.6 % (0.0-10.0); %Neutrophils 71.2 % (42.0-75.0); Hemoglobin 10.1 g/dL (14.0-18.0); Mean Corpuscular HGB CONC 31.8 g/dL (32.0-36.0); Mean Corpuscular Hemoglobin 30.3 pg (27.0-31.0); Mean Corpuscular Volume 95.3 fL (78.0-98.0); Mean Platelet Volume 10.1 fL (7.4-10.4); Platelet Count 196 thou/uL (130-400); RBC Distribution Width 14.9 % (11.5-14.5); Red Blood Cell (RBC) Count 3.33 mill/uL (4.70-6.10)
[2021-09-19] MEDS: Mometasone 200 MCG/Formoterol 5 MCG 120 PUFF INHALER INH SCH ×2 (06:20→17:49)
[2021-09-19 06:21] LABS: Anion Gap 9 mmol/L (10-20); BUN (Urea Nitrogen) 49 mg/dL (8.4-25.7); CRP (Inflammatory) 2.09 mg/dL (= or < 0.5); Calc. Creatinine Clearance 51 mL/min (70-130); Calcium 9.2 mg/dL (7.8-10.44); Carbon Dioxide 32 mmol/L (23-31); Chloride 101 mmol/L (98-107); Glucose 111 mg/dL (83-110); Magnesium 1.7 mg/dL (1.6-2.6); Potassium 4.3 mmol/L (3.5-5.1); Sodium 138 mmol/L (136-145)
[2021-09-19 06:27] LABS: Phosphorus 1.9 mg/dL (2.3-4.7)
[2021-09-19] MEDS ORDERED: Electrolyte Replacement Protocol FS PRN (07:00)
[2021-09-19] MEDS ORDERED: PHOS-NAK 1 PKT PACK PO SCH (07:30)
[2021-09-19] MEDS ORDERED: Magnesium 2 GM/50 ML 2 GM in Premix Bag 1 BAG IVPB SCH (08:00)
[2021-09-19] MEDS: Zinc Sulfate 220 MG CAP PO SCH (08:36)
[2021-09-19] MEDS: Furosemide 20 MG TAB PO SCH ×3 (08:36→21:39)
[2021-09-19] MEDS: Aspirin 325 mg Enteric Coated Tablet PO SCH (08:36)
[2021-09-19] MEDS: Atorvastatin Calcium 40 MG TAB PO SCH (08:36)
[2021-09-19] MEDS: Metoprolol Tartrate 25 MG TAB PO SCH ×3 (08:37→21:39)
[2021-09-19] MEDS: Clopidogrel Bisulfate 75 MG TAB PO SCH (08:37)
[2021-09-19] MEDS: Cefepime 1 GM in Sodium Chloride 0.9% 100 ML IVPB SCH (08:42)
[2021-09-19] MEDS: Cyanocobalamin (Vitamin B-12) 1,000 MCG TAB PO SCH (08:42)
[2021-09-19] MEDS: Enoxaparin Sodium 30 MG/0.3 ML SYRINGE SC SCH (08:44)
[2021-09-19] MEDS: Montelukast Sodium 10 mg Tablet PO SCH (08:44)
[2021-09-19] MEDS: Allopurinol 300 MG TAB PO SCH (08:44)
[2021-09-19] MEDS: predniSONE 20 MG TAB PO SCH (08:44)
[2021-09-19] MEDS: Acetaminophen 325 MG TAB PO PRN (10:13)
[2021-09-19] MEDS: PHOS-NAK 1 PKT PACK PO SCH ×2 (11:18→15:09)
[2021-09-19] MEDS: Cefdinir 300 MG CAP PO SCH (21:39)
[2021-09-20] MEDS: Albuterol 200 PUFF (6.7GM INHALER) INH SCH ×7 (02:45→21:31)
[2021-09-20 05:25] LABS: Phosphorus 2.6 mg/dL (2.3-4.7)
[2021-09-20] MEDS: Mometasone 200 MCG/Formoterol 5 MCG 120 PUFF INHALER INH SCH ×2 (06:09→18:28)
[2021-09-20] MEDS: Aspirin 325 mg Enteric Coated Tablet PO SCH (08:58)
[2021-09-20] MEDS: Allopurinol 300 MG TAB PO SCH (08:59)
[2021-09-20] MEDS: Zinc Sulfate 220 MG CAP PO SCH (08:59)
[2021-09-20] MEDS: Clopidogrel Bisulfate 75 MG TAB PO SCH (08:59)
[2021-09-20] MEDS: predniSONE 20 MG TAB PO SCH (08:59)
[2021-09-20] MEDS: Montelukast Sodium 10 mg Tablet PO SCH (08:59)
[2021-09-20] MEDS: Atorvastatin Calcium 40 MG TAB PO SCH (08:59)
[2021-09-20] MEDS: Cyanocobalamin (Vitamin B-12) 1,000 MCG TAB PO SCH (09:00)
[2021-09-20] MEDS: Furosemide 20 MG TAB PO SCH ×2 (09:00→21:30)
[2021-09-20] MEDS: Cefdinir 300 MG CAP PO SCH ×2 (09:00→21:30)
[2021-09-20] MEDS: Enoxaparin Sodium 30 MG/0.3 ML SYRINGE SC SCH (09:01)
[2021-09-20] MEDS: Metoprolol Tartrate 25 MG TAB PO SCH ×2 (09:06→21:31)
[2021-09-20] MEDS ORDERED: Metoprolol Tartrate 5 MG/5 ML VIAL IVP SCH (10:00)
[2021-09-20] MEDS ORDERED: Digoxin 0.5 MG/2 ML AMP SLOW IVP SCH (11:00)
[2021-09-20] MEDS: HYDROcodone/Acetaminophen 5/325 mg Tablet PO PRN (11:28)
[2021-09-20] MEDS ORDERED: Metoprolol Tartrate 5 MG/5 ML VIAL IVP PRN (12:15)
[2021-09-21] MEDS: Albuterol 200 PUFF (6.7GM INHALER) INH SCH ×6 (02:11→21:19)
[2021-09-21] MEDS: Mometasone 200 MCG/Formoterol 5 MCG 120 PUFF INHALER INH SCH ×2 (05:47→20:34)
[2021-09-21] MEDS: Enoxaparin Sodium 30 MG/0.3 ML SYRINGE SC SCH (08:04)
[2021-09-21] MEDS: HYDROcodone/Acetaminophen 5/325 mg Tablet PO PRN (08:04)
[2021-09-21] MEDS: Aspirin 325 mg Enteric Coated Tablet PO SCH (11:24)
[2021-09-21] MEDS: Atorvastatin Calcium 40 MG TAB PO SCH (11:24)
[2021-09-21] MEDS: Clopidogrel Bisulfate 75 MG TAB PO SCH (11:24)
[2021-09-21] MEDS: Cefdinir 300 MG CAP PO SCH ×2 (11:24→21:18)
[2021-09-21] MEDS: Allopurinol 300 MG TAB PO SCH (11:24)
[2021-09-21] MEDS: predniSONE 20 MG TAB PO SCH (11:24)
[2021-09-21] MEDS: Cyanocobalamin (Vitamin B-12) 1,000 MCG TAB PO SCH (11:25)
[2021-09-21] MEDS: Furosemide 20 MG TAB PO SCH ×2 (11:25→21:18)
[2021-09-21] MEDS: Montelukast Sodium 10 mg Tablet PO SCH (11:26)
[2021-09-21] MEDS: Zinc Sulfate 220 MG CAP PO SCH (11:26)
[2021-09-21] MEDS: Metoprolol Tartrate 25 MG TAB PO SCH ×2 (11:26→21:18)
[2021-09-22] MEDS: HYDROcodone/Acetaminophen 5/325 mg Tablet PO PRN (05:10)
[2021-09-22] MEDS: Albuterol 200 PUFF (6.7GM INHALER) INH SCH ×6 (05:28→21:35)
[2021-09-22 07:48] LABS: Hemoglobin 13.8 g/dL (14.0-18.0); Mean Corpuscular HGB CONC 31.6 g/dL (32.0-36.0); Mean Corpuscular Hemoglobin 30.1 pg (27.0-31.0); Mean Corpuscular Volume 95.2 fL (78.0-98.0); Mean Platelet Volume 9.6 fL (7.4-10.4); Platelet Count 280 thou/uL (130-400); RBC Distribution Width 15.3 % (11.5-14.5); Red Blood Cell (RBC) Count 4.58 mill/uL (4.70-6.10); White Blood Cell (WBC) Count 16.5 thou/uL (4.8-10.8)
[2021-09-22 08:00] LABS: Globulin 3.5 g/dL (2.4-3.5)
[2021-09-22 08:01] LABS: ALT (SGPT) 53 U/L (8-55); AST (SGOT) 48 U/L (5-34); Albumin 3.1 g/dL (3.4-4.8); Alkaline Phosphatase 85 U/L (40-110); BUN (Urea Nitrogen) 50 mg/dL (8.4-25.7); Bilirubin, Total 0.6 mg/dL (0.2-1.2); Calc. Creatinine Clearance 54 mL/min (70-130); Glucose 109 mg/dL (83-110)
[2021-09-22 08:10] LABS: Anion Gap 16 mmol/L (10-20); Carbon Dioxide 36 mmol/L (23-31); Chloride 93 mmol/L (98-107); Potassium 4.3 mmol/L (3.5-5.1); Protein, Total 6.6 g/dL (5.8-8.1); Sodium 141 mmol/L (136-145)
[2021-09-22 08:18] LABS: Band 15 % (5-11); Lymphocytes 5 % (21-51); MDiff Complete? YES; Monocytes 5 % (0-10); Neutrophil 75 % (42-75); Platelet Morphology Comment Appears Adequate; Polychromasia SLIGHT = 2-3 cells (100X) (0-2/hpf); Schistocytes SLIGHT = 2-5 cells (100X) (0-1/hpf)
[2021-09-22] MEDS ORDERED: Furosemide 40 MG TAB PO SCH (09:00)
[2021-09-22] MEDS: Mometasone 200 MCG/Formoterol 5 MCG 120 PUFF INHALER INH SCH ×2 (10:18→19:41)
[2021-09-22] MEDS: Atorvastatin Calcium 40 MG TAB PO SCH (10:19)
[2021-09-22] MEDS: Allopurinol 300 MG TAB PO SCH (10:19)
[2021-09-22] MEDS: Cefdinir 300 MG CAP PO SCH ×2 (10:19→21:35)
[2021-09-22] MEDS: Clopidogrel Bisulfate 75 MG TAB PO SCH (10:19)
[2021-09-22] MEDS: Cyanocobalamin (Vitamin B-12) 1,000 MCG TAB PO SCH (10:19)
[2021-09-22] MEDS: Metoprolol Tartrate 25 MG TAB PO SCH ×2 (10:20→21:35)
[2021-09-22] MEDS: Montelukast Sodium 10 mg Tablet PO SCH (10:20)
[2021-09-22] MEDS: Enoxaparin Sodium 30 MG/0.3 ML SYRINGE SC SCH (10:20)
[2021-09-22] MEDS: Zinc Sulfate 220 MG CAP PO SCH (10:21)
[2021-09-22] MEDS: predniSONE 20 MG TAB PO SCH (11:12)
[2021-09-22] MEDS: Aspirin 325 mg Enteric Coated Tablet PO SCH (19:50)
[2021-09-23] MEDS: HYDROcodone/Acetaminophen 5/325 mg Tablet PO PRN (02:50)
[2021-09-23] MEDS: Albuterol 200 PUFF (6.7GM INHALER) INH SCH ×5 (02:50→19:55)
[2021-09-23] MEDS: Mometasone 200 MCG/Formoterol 5 MCG 120 PUFF INHALER INH SCH ×2 (06:29→19:57)
[2021-09-23] MEDS ORDERED: predniSONE 20 MG TAB PO SCH (08:00)
[2021-09-23] MEDS: Enoxaparin Sodium 40 MG/0.4 ML SYRINGE SC SCH (10:10)
[2021-09-23] MEDS: Atorvastatin Calcium 40 MG TAB PO SCH (10:11)
[2021-09-23] MEDS: Aspirin 81 mg Enteric Coated Tablet PO SCH (10:11)
[2021-09-23] MEDS: Metoprolol Tartrate 25 MG TAB PO SCH ×3 (10:11→21:33)
[2021-09-23] MEDS: Cefdinir 300 MG CAP PO SCH ×2 (10:11→21:32)
[2021-09-23] MEDS: Zinc Sulfate 220 MG CAP PO SCH (10:12)
[2021-09-23] MEDS: Allopurinol 300 MG TAB PO SCH (10:12)
[2021-09-23] MEDS: Cyanocobalamin (Vitamin B-12) 1,000 MCG TAB PO SCH (10:12)
[2021-09-23] MEDS: Montelukast Sodium 10 mg Tablet PO SCH (10:12)
[2021-09-23] MEDS: Clopidogrel Bisulfate 75 MG TAB PO SCH (10:12)
[2021-09-23] MEDS: predniSONE 5 MG TAB PO SCH (10:12)
[2021-09-23] MEDS: Dextrose 5% in Water 1,000 ML IV SCH (16:24)
[2021-09-24] MEDS: Albuterol 200 PUFF (6.7GM INHALER) INH SCH ×7 (00:07→22:00)
[2021-09-24] MEDS ORDERED: Furosemide 40 MG/4 ML VIAL SLOW IVP SCH (01:00)
[2021-09-24 06:43] LABS: %Eosinophils 0.2 % (0.0-10.0); %Monocytes 8.7 % (0.0-10.0); %Neutrophils 84.1 % (42.0-75.0); Mean Corpuscular HGB CONC 30.2 g/dL (32.0-36.0); Mean Corpuscular Hemoglobin 29.6 pg (27.0-31.0); Mean Corpuscular Volume 97.9 fL (78.0-98.0); Mean Platelet Volume 9.7 fL (7.4-10.4); Platelet Count 285 thou/uL (130-400); RBC Distribution Width 15.4 % (11.5-14.5); Red Blood Cell (RBC) Count 4.39 mill/uL (4.70-6.10); White Blood Cell (WBC) Count 10.6 thou/uL (4.8-10.8)
[2021-09-24 07:01] LABS: Anion Gap 14 mmol/L (10-20); BUN (Urea Nitrogen) 71 mg/dL (8.4-25.7); CRP (Inflammatory) 19.95 mg/dL (= or < 0.5); Calc. Creatinine Clearance 44 mL/min (70-130); Carbon Dioxide 37 mmol/L (23-31); Chloride 97 mmol/L (98-107); Glucose 118 mg/dL (83-110); Potassium 4.4 mmol/L (3.5-5.1); Sodium 144 mmol/L (136-145)
[2021-09-24] MEDS: Mometasone 200 MCG/Formoterol 5 MCG 120 PUFF INHALER INH SCH ×2 (07:14→17:38)
[2021-09-24] MEDS: Aspirin 81 mg Enteric Coated Tablet PO SCH (09:31)
[2021-09-24] MEDS: Metoprolol Tartrate 25 MG TAB PO SCH ×2 (09:31→20:57)
[2021-09-24] MEDS: Montelukast Sodium 10 mg Tablet PO SCH (09:31)
[2021-09-24] MEDS: Enoxaparin Sodium 40 MG/0.4 ML SYRINGE SC SCH (09:31)
[2021-09-24] MEDS: Atorvastatin Calcium 40 MG TAB PO SCH (09:32)
[2021-09-24] MEDS: Cyanocobalamin (Vitamin B-12) 1,000 MCG TAB PO SCH (09:32)
[2021-09-24] MEDS: predniSONE 5 MG TAB PO SCH (09:32)
[2021-09-24] MEDS: Cefdinir 300 MG CAP PO SCH ×2 (09:32→20:57)
[2021-09-24] MEDS: Zinc Sulfate 220 MG CAP PO SCH (09:32)
[2021-09-24] MEDS: Allopurinol 300 MG TAB PO SCH (09:32)
[2021-09-24] MEDS: Clopidogrel Bisulfate 75 MG TAB PO SCH (09:33)
[2021-09-24] MEDS ORDERED: Dextrose 5 %-0.45 % NaCl 1,000 ML IV SCH (10:00)
[2021-09-24] MEDS: Dextrose 5% in Water 1,000 ML IV SCH (12:12)
[2021-09-24] MEDS: Acetaminophen 325 MG TAB PO PRN (21:09)
[2021-09-25] MEDS ORDERED: hydrOXYzine 25 MG TAB PO SCH (00:28)
[2021-09-25] MEDS: Albuterol 200 PUFF (6.7GM INHALER) INH SCH ×6 (03:17→21:36)
[2021-09-25] MEDS: Mometasone 200 MCG/Formoterol 5 MCG 120 PUFF INHALER INH SCH ×2 (06:14→18:16)
[2021-09-25 08:27] LABS: Hemoglobin 12.5 g/dL (14.0-18.0); Mean Corpuscular HGB CONC 30.6 g/dL (32.0-36.0); Mean Corpuscular Volume 97.9 fL (78.0-98.0); Mean Platelet Volume 9.7 fL (7.4-10.4); Platelet Count 281 thou/uL (130-400); RBC Distribution Width 15.5 % (11.5-14.5); Red Blood Cell (RBC) Count 4.18 mill/uL (4.70-6.10); White Blood Cell (WBC) Count 10.1 thou/uL (4.8-10.8)
[2021-09-25 08:31] LABS: ALT (SGPT) 35 U/L (8-55); AST (SGOT) 32 U/L (5-34); Albumin 2.7 g/dL (3.4-4.8); Alkaline Phosphatase 85 U/L (40-110); Anion Gap 12 mmol/L (10-20); BUN (Urea Nitrogen) 62 mg/dL (8.4-25.7); Bilirubin, Total 0.5 mg/dL (0.2-1.2); Calc. Creatinine Clearance 54 mL/min (70-130); Calcium 9.7 mg/dL (7.8-10.44); Carbon Dioxide 35 mmol/L (23-31); Chloride 98 mmol/L (98-107); Globulin 3.5 g/dL (2.4-3.5); Glucose 110 mg/dL (83-110); Potassium 4.1 mmol/L (3.5-5.1); Protein, Total 6.2 g/dL (5.8-8.1); Sodium 141 mmol/L (136-145)
[2021-09-25] MEDS: Enoxaparin Sodium 40 MG/0.4 ML SYRINGE SC SCH (10:47)
[2021-09-25] MEDS: Dextrose 5% in Water 1,000 ML IV SCH (10:47)
[2021-09-25] MEDS: Cefdinir 300 MG CAP PO SCH ×2 (10:48→21:11)
[2021-09-25] MEDS: Aspirin 81 mg Enteric Coated Tablet PO SCH (10:48)
[2021-09-25] MEDS: Cyanocobalamin (Vitamin B-12) 1,000 MCG TAB PO SCH (10:48)
[2021-09-25] MEDS: predniSONE 5 MG TAB PO SCH (10:48)
[2021-09-25] MEDS: Montelukast Sodium 10 mg Tablet PO SCH (10:49)
[2021-09-25] MEDS: Zinc Sulfate 220 MG CAP PO SCH (10:49)
[2021-09-25] MEDS: Clopidogrel Bisulfate 75 MG TAB PO SCH (10:49)
[2021-09-25] MEDS: Allopurinol 300 MG TAB PO SCH (10:49)
[2021-09-25] MEDS: Atorvastatin Calcium 40 MG TAB PO SCH (10:49)
[2021-09-25] MEDS: Metoprolol Tartrate 25 MG TAB PO SCH ×2 (10:49→21:11)
[2021-09-25 10:58] LABS: #Lymphocytes 1.4 thou/uL (1.20-3.40); #Neutrophils 7.6 thou/uL (1.40-6.50); %Basophils 0.2 % (0.0-1.0); %Eosinophils 0.5 % (0.0-10.0); %Lymphocytes 13.5 % (21.0-51.0); %Monocytes 9.9 % (0.0-10.0); %Neutrophils 75.9 % (42.0-75.0)
[2021-09-26] MEDS: Albuterol 200 PUFF (6.7GM INHALER) INH SCH ×6 (03:00→23:21)
[2021-09-26] MEDS ORDERED: hydrOXYzine 25 MG TAB PO SCH (03:13)
[2021-09-26] MEDS: Dextrose 5% in Water 1,000 ML IV SCH (04:58)
[2021-09-26] MEDS: Mometasone 200 MCG/Formoterol 5 MCG 120 PUFF INHALER INH SCH ×2 (05:36→17:57)
[2021-09-26 07:03] LABS: Hemoglobin 12.8 g/dL (14.0-18.0); Mean Corpuscular HGB CONC 31.4 g/dL (32.0-36.0); Mean Corpuscular Hemoglobin 30.2 pg (27.0-31.0); Mean Corpuscular Volume 96.3 fL (78.0-98.0); Mean Platelet Volume 9.7 fL (7.4-10.4); Platelet Count 283 thou/uL (130-400); RBC Distribution Width 15.3 % (11.5-14.5); Red Blood Cell (RBC) Count 4.24 mill/uL (4.70-6.10); White Blood Cell (WBC) Count 9.4 thou/uL (4.8-10.8)
[2021-09-26 07:04] LABS: #Lymphocytes 1.2 thou/uL (1.20-3.40); #Monocytes 0.8 thou/uL (0.11-0.59); #Neutrophils 7.3 thou/uL (1.40-6.50); %Basophils 0.2 % (0.0-1.0); %Eosinophils 0.3 % (0.0-10.0); %Lymphocytes 12.3 % (21.0-51.0); %Neutrophils 78.2 % (42.0-75.0)
[2021-09-26 07:34] LABS: BUN (Urea Nitrogen) 54 mg/dL (8.4-25.7); Calc. Creatinine Clearance 59 mL/min (70-130); Calcium 9.5 mg/dL (7.8-10.44); Carbon Dioxide 25 mmol/L (23-31); Chloride 96 mmol/L (98-107); Glucose 88 mg/dL (83-110); Potassium 6.1 mmol/L (3.5-5.1); Sodium 135 mmol/L (136-145)
[2021-09-26 07:36] LABS: Anion Gap 20 mmol/L (10-20)
[2021-09-26] MEDS: Aspirin 81 mg Enteric Coated Tablet PO SCH (10:23)
[2021-09-26] MEDS: Cefdinir 300 MG CAP PO SCH ×2 (10:23→23:20)
[2021-09-26] MEDS: predniSONE 5 MG TAB PO SCH (10:24)
[2021-09-26] MEDS: Clopidogrel Bisulfate 75 MG TAB PO SCH (10:24)
[2021-09-26] MEDS: Montelukast Sodium 10 mg Tablet PO SCH (10:24)
[2021-09-26] MEDS: Metoprolol Tartrate 25 MG TAB PO SCH ×2 (10:24→23:20)
[2021-09-26] MEDS: Atorvastatin Calcium 40 MG TAB PO SCH (10:24)
[2021-09-26] MEDS: Zinc Sulfate 220 MG CAP PO SCH (10:24)
[2021-09-26] MEDS: Allopurinol 300 MG TAB PO SCH (10:25)
[2021-09-26] MEDS: Cyanocobalamin (Vitamin B-12) 1,000 MCG TAB PO SCH (10:25)
[2021-09-26] MEDS: Enoxaparin Sodium 40 MG/0.4 ML SYRINGE SC SCH (10:26)
[2021-09-26] MEDS ORDERED: ALPRAZolam 0.5 MG TAB PO SCH (15:45)
[2021-09-26 17:52] LABS: Anion Gap 13 mmol/L (10-20); BUN (Urea Nitrogen) 51 mg/dL (8.4-25.7); Calc. Creatinine Clearance 63 mL/min (70-130); Calcium 9.4 mg/dL (7.8-10.44); Carbon Dioxide 35 mmol/L (23-31); Chloride 95 mmol/L (98-107); Glucose 129 mg/dL (83-110); Potassium 4.7 mmol/L (3.5-5.1); Sodium 138 mmol/L (136-145)
[2021-09-26] MEDS: Acetaminophen 325 MG TAB PO PRN (23:20)
[2021-09-27] MEDS: Dextrose 5% in Water 1,000 ML IV SCH ×4 (03:34→23:39)
[2021-09-27] MEDS: Albuterol 200 PUFF (6.7GM INHALER) INH SCH ×8 (03:35→23:10)
[2021-09-27] MEDS: Mometasone 200 MCG/Formoterol 5 MCG 120 PUFF INHALER INH SCH ×4 (06:13→22:18)
[2021-09-27 06:25] LABS: Anion Gap 14 mmol/L (10-20); BUN (Urea Nitrogen) 46 mg/dL (8.4-25.7); Calc. Creatinine Clearance 65 mL/min (70-130); Calcium 9.5 mg/dL (7.8-10.44); Carbon Dioxide 32 mmol/L (23-31); Chloride 96 mmol/L (98-107); Glucose 110 mg/dL (83-110); Potassium 6.1 mmol/L (3.5-5.1); Sodium 136 mmol/L (136-145)
[2021-09-27 08:49] LABS: Albumin 2.7 g/dL (3.4-4.8)
[2021-09-27 08:50] LABS: Chloride 96 mmol/L (98-107); Potassium 4.6 mmol/L (3.5-5.1)
[2021-09-27 08:51] LABS: Calcium 9.9 mg/dL (7.8-10.44); Glucose 108 mg/dL (83-110)
[2021-09-27 08:53] LABS: Anion Gap 13 mmol/L (10-20); Carbon Dioxide 34 mmol/L (23-31)
[2021-09-27 08:55] LABS: Calc. Creatinine Clearance 70 mL/min (70-130); Phosphorus 2.5 mg/dL (2.3-4.7)
[2021-09-27 08:56] LABS: BUN (Urea Nitrogen) 45 mg/dL (8.4-25.7); BUN/Creatinine Ratio 52.94
[2021-09-27] MEDS: Cyanocobalamin (Vitamin B-12) 1,000 MCG TAB PO SCH (10:48)
[2021-09-27] MEDS: predniSONE 5 MG TAB PO SCH (10:48)
[2021-09-27] MEDS: Clopidogrel Bisulfate 75 MG TAB PO SCH (10:48)
[2021-09-27] MEDS: Cefdinir 300 MG CAP PO SCH ×4 (10:48→22:18)
[2021-09-27] MEDS: Aspirin 81 mg Enteric Coated Tablet PO SCH (10:48)
[2021-09-27] MEDS: Montelukast Sodium 10 mg Tablet PO SCH (10:48)
[2021-09-27] MEDS: Allopurinol 300 MG TAB PO SCH (10:49)
[2021-09-27] MEDS: Atorvastatin Calcium 40 MG TAB PO SCH (10:49)
[2021-09-27] MEDS: Zinc Sulfate 220 MG CAP PO SCH (10:50)
[2021-09-27] MEDS: Enoxaparin Sodium 40 MG/0.4 ML SYRINGE SC SCH (10:50)
[2021-09-27] MEDS: Metoprolol Tartrate 25 MG TAB PO SCH ×3 (10:50→20:41)
[2021-09-28] MEDS: Acetaminophen 325 MG TAB PO PRN (00:29)
[2021-09-28] MEDS ORDERED: hydrOXYzine 10 MG TAB PO SCH (02:00)
[2021-09-28] MEDS: Albuterol 200 PUFF (6.7GM INHALER) INH SCH ×6 (02:18→23:30)
[2021-09-28] MEDS: Mometasone 200 MCG/Formoterol 5 MCG 120 PUFF INHALER INH SCH ×2 (05:37→18:21)
[2021-09-28 06:04] LABS: Anion Gap 13 mmol/L (10-20); BUN (Urea Nitrogen) 49 mg/dL (8.4-25.7); Calc. Creatinine Clearance 55 mL/min (70-130); Calcium 9.8 mg/dL (7.8-10.44); Carbon Dioxide 36 mmol/L (23-31); Chloride 93 mmol/L (98-107); Glucose 102 mg/dL (83-110); Potassium 4.2 mmol/L (3.5-5.1); Sodium 138 mmol/L (136-145)
[2021-09-28] MEDS: Enoxaparin Sodium 40 MG/0.4 ML SYRINGE SC SCH (10:04)
[2021-09-28] MEDS: Cyanocobalamin (Vitamin B-12) 1,000 MCG TAB PO SCH (10:04)
[2021-09-28] MEDS: Cefdinir 300 MG CAP PO SCH ×2 (10:04→20:40)
[2021-09-28] MEDS: Aspirin 81 mg Enteric Coated Tablet PO SCH (10:05)
[2021-09-28] MEDS: predniSONE 5 MG TAB PO SCH (10:05)
[2021-09-28] MEDS: Montelukast Sodium 10 mg Tablet PO SCH (10:06)
[2021-09-28] MEDS: Allopurinol 300 MG TAB PO SCH (10:06)
[2021-09-28] MEDS: Clopidogrel Bisulfate 75 MG TAB PO SCH (10:06)
[2021-09-28] MEDS: Metoprolol Tartrate 25 MG TAB PO SCH ×2 (10:06→20:40)
[2021-09-28] MEDS: Atorvastatin Calcium 40 MG TAB PO SCH (10:06)
[2021-09-28] MEDS: Zinc Sulfate 220 MG CAP PO SCH (10:06)
[2021-09-28] MEDS: ALPRAZolam 0.25 MG TAB PO PRN ×2 (10:37→20:47)
[2021-09-28 10:53] LABS: Sodium 138 mmol/L (136-145)
[2021-09-28 20:01] VITALS: BMI 22.1
[2021-09-29] MEDS: Albuterol 200 PUFF (6.7GM INHALER) INH SCH ×6 (03:30→23:29)
[2021-09-29] MEDS: Mometasone 200 MCG/Formoterol 5 MCG 120 PUFF INHALER INH SCH ×2 (06:30→17:46)
[2021-09-29 07:07] LABS: BUN (Urea Nitrogen) 51 mg/dL (8.4-25.7); Calc. Creatinine Clearance 53 mL/min (70-130); Calcium 9.8 mg/dL (7.8-10.44); Glucose 87 mg/dL (83-110)
[2021-09-29 07:16] LABS: Anion Gap 17 mmol/L (10-20); Carbon Dioxide 33 mmol/L (23-31); Chloride 96 mmol/L (98-107); Potassium 4.1 mmol/L (3.5-5.1); Sodium 142 mmol/L (136-145)
[2021-09-29] MEDS: Montelukast Sodium 10 mg Tablet PO SCH (08:46)
[2021-09-29] MEDS: Allopurinol 300 MG TAB PO SCH (08:46)
[2021-09-29] MEDS: Cyanocobalamin (Vitamin B-12) 1,000 MCG TAB PO SCH (08:46)
[2021-09-29] MEDS: Atorvastatin Calcium 40 MG TAB PO SCH (08:47)
[2021-09-29] MEDS: predniSONE 5 MG TAB PO SCH (08:47)
[2021-09-29] MEDS: Metoprolol Tartrate 25 MG TAB PO SCH ×2 (08:47→20:22)
[2021-09-29] MEDS: Clopidogrel Bisulfate 75 MG TAB PO SCH (08:47)
[2021-09-29] MEDS: Enoxaparin Sodium 40 MG/0.4 ML SYRINGE SC SCH (08:48)
[2021-09-29] MEDS: Aspirin 81 mg Enteric Coated Tablet PO SCH (08:48)
[2021-09-29] MEDS: Cefdinir 300 MG CAP PO SCH ×2 (08:48→20:21)
[2021-09-29] MEDS: Zinc Sulfate 220 MG CAP PO SCH (08:48)
[2021-09-29] MEDS ORDERED: ALPRAZolam 0.25 MG TAB PO SCH (09:00)
[2021-09-29] MEDS ORDERED: Morphine 4 MG/ML VIAL SLOW IVP PRN (11:27)
[2021-09-29] MEDS ORDERED: Lorazepam 2 MG/ML VIAL SLOW IVP PRN (11:29)
[2021-09-30] MEDS: Albuterol 200 PUFF (6.7GM INHALER) INH SCH ×3 (03:07→10:27)
[2021-09-30] MEDS: Mometasone 200 MCG/Formoterol 5 MCG 120 PUFF INHALER INH SCH (05:33)
[2021-09-30] MEDS: Allopurinol 300 MG TAB PO SCH (07:53)
[2021-09-30] MEDS: Cyanocobalamin (Vitamin B-12) 1,000 MCG TAB PO SCH (07:53)
[2021-09-30] MEDS: Metoprolol Tartrate 25 MG TAB PO SCH (07:53)
[2021-09-30] MEDS: Montelukast Sodium 10 mg Tablet PO SCH (07:53)
[2021-09-30] MEDS: Zinc Sulfate 220 MG CAP PO SCH (07:53)
[2021-09-30] MEDS: Clopidogrel Bisulfate 75 MG TAB PO SCH (07:53)
[2021-09-30] MEDS: predniSONE 5 MG TAB PO SCH (07:53)
[2021-09-30] MEDS: Aspirin 81 mg Enteric Coated Tablet PO SCH (07:53)
[2021-09-30] MEDS: Atorvastatin Calcium 40 MG TAB PO SCH (07:53)
[2021-09-30] MEDS ORDERED: Sodium Chloride 0.9% 500 ML IVPB SCH (08:30)
[2021-09-30 12:00] VITALS: BP 60/35; TEMP 98.4
[2021-09-30] MEDS: Enoxaparin Sodium 40 MG/0.4 ML SYRINGE SC SCH (13:20)
== END 2021-09-30 17:30 | disposition expired | DRG 871 ==
LOC: ERS 19:05 → 2NO 22:56 → CCU 09-14 01:49 → 2SW 09-14 19:53
PROVIDERS: ADMIT Internal Medicine; ATTEND Internal Medicine
PROC: 8E0ZXY6 Isolation (ICD-10-PCS; 2021-09-13)
PROC: 3E03329 Introduction of Other Anti-infective into Peripheral Vein, Percutaneous Approach (ICD-10-PCS; 2021-09-13)
PROC: 5A0955A Assistance with Respiratory Ventilation, Greater than 96 Consecutive Hours, High Flow/Velocity Cannula (ICD-10-PCS; principal; 2021-09-23)
DX: A41.89 Other specified sepsis (principal); U07.1 COVID-19; J12.82 Pneumonia due to coronavirus disease 2019; J96.21 Acute and chronic respiratory failure with hypoxia; R40.20 Unspecified coma; J44.1 Chronic obstructive pulmonary disease with (acute) exacerbation; J44.0 Chronic obstructive pulmonary disease with (acute) lower respiratory infection; I50.22 Chronic systolic (congestive) heart failure; I13.0 Hypertensive heart and chronic kidney disease with heart failure and stage 1 through stage 4 chronic kidney disease, or unspecified chronic kidney disease; N17.9 Acute kidney failure, unspecified; M48.54XA Collapsed vertebra, not elsewhere classified, thoracic region, initial encounter for fracture; E87.2 Acidosis; G93.49 Other encephalopathy; J91.8 Pleural effusion in other conditions classified elsewhere; Z66 Do not resuscitate; Z51.5 Encounter for palliative care; I48.91 Unspecified atrial fibrillation; M10.9 Gout, unspecified; G62.9 Polyneuropathy, unspecified; I25.10 Atherosclerotic heart disease of native coronary artery without angina pectoris; Z96.653 Presence of artificial knee joint, bilateral; I25.5 Ischemic cardiomyopathy; N18.32 Chronic kidney disease, stage 3b; I08.1 Rheumatic disorders of both mitral and tricuspid valves; F41.9 Anxiety disorder, unspecified; Z99.81 Dependence on supplemental oxygen; I25.2 Old myocardial infarction; Z95.5 Presence of coronary angioplasty implant and graft; Z95.810 Presence of automatic (implantable) cardiac defibrillator; Z87.891 Personal history of nicotine dependence; Z79.899 Other long term (current) drug therapy; Z79.82 Long term (current) use of aspirin; Z79.51 Long term (current) use of inhaled steroids; Z79.02 Long term (current) use of antithrombotics/antiplatelets; Z85.46 Personal history of malignant neoplasm of prostate; Z90.79 Acquired absence of other genital organ(s); Z98.890 Other specified postprocedural states; E78.2 Mixed hyperlipidemia
CPT/HCPCS: 36415; 36416; 71045; 71250; 80048; 80053; 80069; 81003; 81015; 82728; 83605; 83735; 83880; 84100; 84145; 84443; 84550; 85007; 85025; 85027; 85379; 86140; 87040; 93005; 93306; 96365; 96375; J0456; J0692; J0696; J1160; J1650; J1940; J2060; J2270; J3475; J3490; J7030; J7050; J7070; J7120; J7512; J8540; U0002